=== PATIENT | female | born 1960 | race Caucasian/White ===

== ENCOUNTER 2019-08-28 12:45 | Emergency (ER) | payer BC ==
[2019-08-28] MEDS ORDERED: ASPIRIN 81 MG TABLET, CHEWABLE PO ONE (13:14)
--- NOTE | 2019-08-28 13:14 | ER Document Report ---
ED Medical Screen (RME) - General Chief Complaint: Chest Pain Stated Complaint: CHEST PAIN Time Seen by Provider: 08/28/19 13:12 Primary Care Provider: GARY ROMAN MD [Primary Care Provider] - Follow up as needed Mode of Arrival: Ambulatory Information source: Patient Notes: 59-year-old female presents to ED for complaint of chest pain that started at 1:00 this morning. States the pain felt like pressure. States there was no radiation of the pain. She states when she was 13 years old she had a coarctation of the aorta repair, she has had a hysterectomy for fibroid uterus, and high blood pressure since . Is alert oriented respirations regular nonlabored speaking in full sentences. Denies use of cigarettes alcohol or illicit drugs. She is alert oriented respirations regular nonlabored speaking in full sentences. Her temperature is 99.4 pulse 69 respirations 16 blood pressure 154/71 O2 sats 91% on room air. I have greeted and performed a rapid initial assessment of this patient. A comprehensive ED assessment and evaluation of the patient, analysis of test results and completion of medical decision making process will be conducted by an additional ED providers. Doctor's Discharge - Discharge Referrals: GARY ROMAN MD [Primary Care Provider] - Follow up as needed
[2019-08-28 13:41] LABS: ABSOLUTE BASOPHILS # (AUTO) 0.1 10^3/uL (0.0-0.2); ABSOLUTE EOSINOPHILS # (AUTO) 0.1 10^3/uL (0.0-0.6); ABSOLUTE LYMPHOCYTES (AUTO) 2.5 10^3/uL (0.5-4.7); ABSOLUTE MONOCYTES (AUTO) 0.8 10^3/uL (0.1-1.4); BASOPHILS % (AUTO) 0.6 % (0-2); EOSINOPHILS % (AUTO) 1.2 % (0-6); HEMATOCRIT 38.4 % (36.0-47.0); HEMOGLOBIN 13.5 g/dL (12.0-15.5); LYMPHOCYTES % (AUTO) 23.9 % (13-45); MEAN CORPUSCULAR HEMOGLOBIN 29.4 pg (27.0-33.4); MEAN CORPUSCULAR HGB CONC 35.2 g/dL (32.0-36.0); MEAN CORPUSCULAR VOLUME 84 fl (80-97); MONOCYTES % (AUTO) 7.4 % (3-13); PLATELET COUNT 200 10^3/uL (150-450); RED BLOOD COUNT 4.59 10^6/uL (3.72-5.28); RED CELL DISTRIBUTION WIDTH 13.7 % (11.5-14.0); SEGMENTED NEUTROPHILS % (AUTO) 66.9 % (42-78); TOTAL CELLS COUNTED % (AUTO) 100 %; WHITE BLOOD COUNT 10.5 10^3/uL (4.0-10.5)
--- NOTE | 2019-08-28 13:46 | ER Document Report ---
ED General - General Chief Complaint: Chest Pain Stated Complaint: CHEST PAIN Time Seen by Provider: 08/28/19 13:12 Primary Care Provider: GARY ROMAN MD [EMERITUS] - Follow up as needed Mode of Arrival: Ambulatory Notes: 59-year-old female originally from [facility] and age 13 had coarctation of aorta that was repaired when she was in that state. She has had a heart murmur since she was born. 2 out of 3 of her children have had repair of their coarctation of aorta and her 3 sisters 2 brothers with heart murmurs but no coarctation of aorta. Both parents are from COPD. Patient does not smoke does not drink. Patient reports she awoke this morning at 0 100 awakened her from sleep with pressure in her chest. She has had bilateral leg edema +1 pitting for several months. She does not have a capacitor inspector in this state. per Jessica BANERJEE note: 59-year-old female presents to ED for complaint of chest pain that started at 1:00 this morning. States the pain felt like pressure. States there was no radiation of the pain. She states when she was 13 years old she had a coarctation of the aorta repair, she has had a hysterectomy for fibroid uterus, and high blood pressure since . Is alert oriented respirations regular nonlabored speaking in full sentences. Denies use of cigarettes alcohol or illicit drugs. She is alert oriented respirations regular nonlabored speaking in full sentences. Her temperature is 99.4 pulse 69 respirations 16 blood pressure 154/71 O2 sats 91% on room air. TRAVEL OUTSIDE OF THE [place] IN LAST 30 DAYS: No - HPI Onset: This morning Onset/Duration: Sudden Quality of pain: Pressure - I discussed this case with Dr. Weber at 1345 and will keep him apprised of the patient's status. He will be glad to be her capacitor inspector. Severity: Mild Pain Level: 1 Associated symptoms: None, Other - New referral of chest pressure patient points to her midsternal area as being symptomatic but denies any nausea vomiting diaphoresis Exacerbated by: Movement, Deep breathing Relieved by: Denies Similar symptoms previously: No Recently seen / treated by doctor: No - Related Data Allergies/Adverse Reactions: No Known Allergies Allergy (Unverified 08/28/19 13:44) Past Medical History - General Information source: Patient - Social History Smoking Status: Never Smoker Cigarette use (# per day): No Chew tobacco use (# tins/day): No Smoking Education Provided: No Frequency of alcohol use: None Drug Abuse: None Lives with: Family Family History: Hypertension, Other - 2 children with coarctation of aorta as well as 3 sisters 2 brothers with heart murmurs and hypertension Patient has suicidal ideation: No Patient has homicidal ideation: No Review of Systems - Review of Systems Constitutional: No symptoms reported EENT: No symptoms reported Cardiovascular: Chest pain, Edema Respiratory: No symptoms reported Gastrointestinal: No symptoms reported Genitourinary: No symptoms reported Female Genitourinary: No symptoms reported Musculoskeletal: No symptoms reported Skin: No symptoms reported Hematologic/Lymphatic: No symptoms reported Neurological/Psychological: No symptoms reported Physical Exam - Vital signs Vitals: Temp Pulse Resp BP Pulse Ox 99.4 F 69 16 154/75 H 96 08/28/19 13:08 08/28/19 13:08 08/28/19 13:08 08/28/19 13:08 08/28/19 13:08 Interpretation: Hypertensive - General General appearance: Appears well - HEENT Head: Normocephalic Eyes: Normal Conjunctiva: Normal Cornea: Normal Extraocular movements intact: Yes Eyelashes: Normal Pupils: PERRL Pharynx: Normal Neck: Normal - Respiratory Respiratory status: No respiratory distress Chest status: Nontender Breath sounds: Normal Chest palpation: Normal - Cardiovascular Rhythm: Regular Heart sounds: Normal auscultation Murmur: Yes Systolic murmur grade 1-6: 3 Friction rub: Yes Miryam's crunch: No - Abdominal Inspection: Normal Distension: No distension Bowel sounds: Normal Tenderness: Nontender Organomegaly: No organomegaly - Back Back: Nontender - Extremities General upper extremity: Normal inspection General lower extremity: Edema - Neurological Neuro grossly intact: Yes Cognition: Normal Orientation: AAOx4 Araceli Coma Scale Eye Opening: Spontaneous Araceli Coma Scale Verbal: Oriented [place] Coma Scale Motor: Obeys Commands Araceli Coma Scale Total: 15 Speech: Normal Cranial nerves: Normal Cerebellar coordination: Normal Motor strength normal: LUE, RUE, LLE, RLE - Psychological Associated symptoms: Normal affect - Skin Skin Temperature: Warm Skin Moisture: Dry Course - Vital Signs Vital signs: Temp Pulse Resp BP Pulse Ox 99.4 F 69 17 165/63 H 99 08/28/19 13:08 08/28/19 13:08 08/28/19 16:01 08/28/19 16:01 08/28/19 16:01 - Laboratory Result Diagrams: 08/28/19 13:30 08/28/19 13:30 Laboratory results interpreted by me: 08/28/19 08/28/19 08/28/19 13:30 13:30 13:30 D-Dimer 0.55 H BUN 21 H Glucose 114 H NT-Pro-B Natriuret Pep 3710 H - Diagnostic Test Radiology reviewed: Reports reviewed - EKG Interpretation by Me EKG shows normal: Sinus rhythm Critical Care Note - Critical Care Note Total time excluding time spent on procedures (mins): 90 Comments: This case was discussed with Dr. Gus truong and he will be glad to see this patient. CT scan revealed LVH as well as coarctation residual type findings as well as cholelithiasis but no PE Discharge - Discharge Clinical Impression: Left ventricular hypertrophy, Atrial enlargement, left CHF (congestive heart failure) Qualifiers: Heart failure type: unspecified Heart failure chronicity: acute Qualified Code(s): I50.9 - Heart failure, unspecified Cholelithiasis Qualifiers: Cholelithiasis location: gallbladder Cholecystitis presence: without cholecystitis Biliary obstruction: without biliary obstruction Qualified Code(s): K80.20 - Calculus of gallbladder without cholecystitis without obstruction Clinical Impression: (Ruled Out): Atrial enlargement, right Condition: Good Disposition: HOME, SELF-CARE Additional Instructions: Follow-up with Dr. Weber capacitor inspector call his office today after being discharged take medicines as directed encourage fluids up to 1/2 quart daily but no more than this.. Your CT scan does not show any pulmonary embolism but does show left ventricular hypertrophy and left atrial enlargement. Referrals: GARY ROMAN MD [EMERITUS] - Follow up as needed
--- NOTE | 2019-08-28 14:01 | RADIOLOGY REPORT (SQ) ---
EXAM DESCRIPTION: CHEST SINGLE VIEW COMPLETED DATE/TIME: 08/28/2019 1:43 pm REASON FOR STUDY: Chest pain COMPARISON: None. EXAM PARAMETERS: NUMBER OF VIEWS: One view. TECHNIQUE: Single frontal radiographic view of the chest acquired. RADIATION DOSE: NA LIMITATIONS: None. FINDINGS: LUNGS AND PLEURA: No opacities, masses or pneumothorax. No pleural effusion. MEDIASTINUM AND HILAR STRUCTURES: No masses. Contour normal. HEART AND VASCULAR STRUCTURES: Likely left atrial enlargement with double right heart border sign. N o overt edema. Normal central vasculature. BONES: No acute findings. HARDWARE: None in the chest. OTHER: No other significant finding. IMPRESSION: No evidence of acute cardiopulmonary process. Likely left atrial enlargement. TECHNICAL DOCUMENTATION: JOB ID: [id number] 2010 [employer]- All Rights Reserved Reading location - IP/workstation name: [email or web address]
[2019-08-28 14:10] LABS: INTERNATIONAL RATION (INR) 0.98
[2019-08-28 14:11] LABS: PARTIAL THROMBOPLASTIN TIME 29.7 SEC (23.5-35.8)
[2019-08-28 14:13] LABS: D-DIMER 0.55 ug/mL (0.00-0.50)
[2019-08-28 14:14] LABS: ALBUMIN 4.5 g/dL (3.5-5.0); ALKALINE PHOSPHATASE 67 U/L (38-126); ANION GAP 10 (5-19); ASPARTATE AMINO TRANSFERASE 30 U/L (14-36); BILIRUBIN,DIRECT 0.3 mg/dL (0.0-0.4); BILIRUBIN,TOTAL 0.6 mg/dL (0.2-1.3); BLOOD UREA NITROGEN 21 mg/dL (7-20); CALCIUM 9.9 mg/dL (8.4-10.2); CARBON DIOXIDE 27 mmol/L (22-30); CHLORIDE 103 mmol/L (98-107); GLUCOSE 114 mg/dL (75-110); POTASSIUM 3.8 mmol/L (3.6-5.0); TOTAL PROTEIN 8.1 g/dL (6.3-8.2)
[2019-08-28 14:21] LABS: TROPONIN I 0.026 ng/mL
[2019-08-28 14:30] LABS: APPEARANCE,URINE CLEAR; BILIRUBIN,URINE NEGATIVE (NEGATIVE); COLOR,URINE YELLOW; GLUCOSE, URINE NEGATIVE (NEGATIVE); KETONES,URINE NEGATIVE (NEGATIVE); LEUKOCYTE ESTERASE,URINE NEGATIVE (NEGATIVE); NITRITE,URINE NEGATIVE (NEGATIVE); PROTEIN,URINE NEGATIVE (NEGATIVE); URINE SPECIFIC GRAVITY 1.011; UROBILINOGEN,URINE NEGATIVE mg/dL (<2.0)
[2019-08-28 16:14] VITALS: BP 165/63
--- NOTE | 2019-08-28 16:27 | RADIOLOGY REPORT (SQ) ---
EXAM DESCRIPTION: CTA CHEST COMPLETED DATE/TIME: 08/28/2019 3:56 pm REASON FOR STUDY: cp COMPARISON: Same day radiograph. TECHNIQUE: CT scan of the chest performed using helical scanning technique with dynamic intravenous contrast injection. Images reviewed with lung, soft tissue and bone windows. Reconstructed coronal and sagittal MPR images reviewed. Additional 3 dimensional post-processing performed to develop Maximal Intensity Projection images (NH P). All images stored on PACS. All CT scanners at this facility use dose modulation, iterative reconstruction, and/or weight based d osing when appropriate to reduce radiation dose to as low as reasonably achievable (ALARA). [facility]: Dose Right [facility]: CareDose [facility]: Dose Right [facility]: Teradose 4D [facility]: Volley CONTRAST TYPE AND DOSE: contrast/concentration: Isovue 350.00 mg/ml; Total Contrast Delivered: 53.0 ml; Total Saline Delivered: 78.0 ml Contrast bolus optimized for the pulmonary arteries. Not diagnostic for the aorta. RENAL FUNCTION: Creatinine 0.88 RADIATION DOSE: CT Rad equipment meets quality standard of care and radiation dose reduction techniq ues were employed. CTDIvol: 19.8 - 21.8 mGy. DLP: 894 mGy-cm. . LIMITATIONS: None. FINDINGS: LUNGS AND PLEURA: No masses, infiltrates, or pneumothorax. No pleural effusions or pleura l calcifications. AORTA AND GREAT VESSELS: No aneurysm. There is small caliber of the proximal descending aorta just d istal to the left subclavian takeoff with scattered mural calcifications. Aortic caliber measures ap proximately 14 mm at the level of the khurram and spans approximately 3.7 cm in cranial caudal extent. Prominent bilateral great vessels, internal mammary arteries and additional thoracic collaterals co mpatible with coarctation. No dissection. HEART: Cardiomegaly. Specifically left ventricular hypertrophy and left atrial enlargement. There i s extensive calcifications at the aortic annulus. Scattered coronary atherosclerosis. No pericardial effusion. PULMONARY ARTERIES: No emboli visualized in the main pulmonary arteries or the segmental branches. HILAR AND MEDIASTINAL STRUCTURES: No identified masses or abnormal nodes. HARDWARE: None in the chest. UPPER ABDOMEN: Small caliber abdominal aorta measuring 13 mm at the level of the renal arteries. Hep atic steatosis. Cholelithiasis. Left renal cyst. THYROID AND OTHER SOFT TISSUES: No masses. No adenopathy. BONES: No acute bony abnormality. No suspicious osseous lesions. 3D MIPS: Confirm above findings. OTHER: No other significant finding. IMPRESSION: 1. No evidence of pulmonary embolus or other acute intrathoracic process. 2. Cardiomegaly. Specifically left ventricular hypertrophy and left atrial enlargement with extensi ve calcifications at the aortic annulus. Consider ECHO for evaluation of aortic stenosis. 3. Diminutive caliber of the proximal descending aorta measuring 14 mm at the level of the khurram. Prominent bilateral great vessels, internal mammary arteries and additional thoracic collaterals comp atible with coarctation. 4. Cholelithiasis. COMMENT: Quality ID # [id number]: Final reports with documentation of one or more dose reduction techniques (e.g., Automated exposure control, adjustment of the mA and/or kV according to patient size, use of iterative reconstruction technique) TECHNICAL DOCUMENTATION: JOB ID: [id number] 2010 [employer]- All Rights Reserved Reading location - IP/workstation name: [email or web address]
[2019-08-28] MEDS ORDERED: BUMETANIDE INJ/PF 1 MG/4 ML SDV IV ONE (16:47)
--- NOTE | 2019-08-29 11:38 | EKG REPORT ---
SEVERITY:- ABNORMAL ECG - SINUS RHYTHM ABNORMAL T, CONSIDER ISCHEMIA, LATERAL LEADS vs LVH : Confirmed by: Kathryn Hayward 29-Aug-2019 11:38:03
== END 2019-08-28 17:10 | disposition home or self-care (01) ==
LOC: ER 12:45
DX: I51.7 Cardiomegaly (principal); K80.20 Calculus of gallbladder without cholecystitis without obstruction; R07.9 Chest pain, unspecified; R60.9 Edema, unspecified; I50.9 Heart failure, unspecified; Z90.710 Acquired absence of both cervix and uterus
CPT/HCPCS: 93005; 99291; 99292; 96374; 36415; 85025; 85610; 85730; 80053; 81001; 84484; 85379; 83880; 71045; 71275; 93010; J3490